=== PATIENT | female | born 1995 | race Caucasian/White ===

== ENCOUNTER 2017-12-03 03:14 | Emergency (ER) | payer BC ==
[~2017-12-03] VITALS: Ht 170.2 cm; Wt 99.5 kg
[2017-12-03] MEDS ORDERED: TETANUS/DIPHTHERIA TOX ADULT 0.5 ML SYR IM ONE (04:00)
== END 2017-12-03 04:00 | disposition home or self-care (01) ==
LOC: FSED 03:14
DX: S61.412A Laceration without foreign body of left hand, initial encounter (principal); M79.642 Pain in left hand; W45.8XXA Other foreign body or object entering through skin, initial encounter; Y92.008 Other place in unspecified non-institutional (private) residence as the place of occurrence of the external cause
CPT/HCPCS: 90714; 99283

== ENCOUNTER 2019-02-04 14:06 | Emergency (ER) | payer SELFPAY ==
[~2019-02-04] VITALS: Ht 170.2 cm; Wt 99.3 kg
--- NOTE | 2019-02-04 14:38 | NUR ---
seen in hallway by level glass vial filler
--- NOTE | 2019-02-04 15:21 | Diagnostic Imaging Report ---
EXAMINATION: PA and lateral views of the chest. COMPARISON: None CLINICAL HISTORY: Chest pain, dizziness DISCUSSION: Lines/tubes: None. Lungs: The lungs are well inflated and clear. There is no evidence of pneumonia or pulmonary edema. Pleura: There is no pleural effusion or pneumothorax. Heart and mediastinum: The cardiomediastinal silhouette is normal. Bones and soft tissues: No acute bony abnormalities. IMPRESSION: No acute cardiopulmonary abnormalities. Signed by: Dr. Ronal Slade M.D. on 02/04/2019 3:18 PM
== END 2019-02-04 19:27 | disposition home or self-care (01) ==
LOC: ER 14:06
DX: R07.89 Other chest pain (principal); R05 Cough; J20.9 Acute bronchitis, unspecified
CPT/HCPCS: 71046; 93005; 99282

== ENCOUNTER 2019-06-21 17:35 | Emergency (ER) | payer BC, MEDICARE ==
[~2019-06-21] VITALS: Ht 170.2 cm; Wt 99.3 kg
--- OUTSIDE RECORDS SUMMARY | 2019-06-21 17:38 | XMS REPORT ---
Author [facility] Address Unknown Phone Unavailable Care Team Providers Care C Developer Name Role Phone Ansley FRAIRE Unavailable Unavailable Problems This patient has no known problems. Allergies, Adverse Reactions, Alerts This patient has no known allergies or adverse reactions. Medications This patient has no known medications. Results Test Description Test Time Test Comments Text Results Atomic Results Result Comments CHEST 2 VIEWS 2019-02-04 15:17:00 [place] [address] Patient Name: DONNA INIGUEZ MR #: [id number] : 1995 Age/Sex: 23/F Req #: [id number] Adm Physician: Ordered by: CRISPIN CASTILLO PLANNER/SCHEDULER Report #: [id number] Location: ER Room/Bed: Procedure: [id number] DX/CHEST 2 VIEWS Exam Date: 02/04/19 Exam Time: 1450 REPORT STATUS: Signed EXAMINATION: PA and lateral views of the chest. C OMPARISON: None CLINICAL HISTORY: Chest pain, dizziness DISCUSSION: Lines/tubes: None. Lungs: The lungs are well inflated and clear. There is no evidence of pneumonia or pulmonary edema. Pleura: There is no pleural effusion or pneumothorax. Heart and mediastinum: The cardiomediastinal silhouette is normal. Bones and soft tissues: No acute bony abnormalities. IMPRESSION: No acute cardiopulmonary abnormalities. Signed by: Dr. Norah Espinoza M.D. on 02/04/2019 3:18 PM Dictated By: NORAH ESPINOZA MD [id number] Transcribed By: JOSE on 02/04/19 1518 COPY TO: CRISPIN CASTILLO NP
[2019-06-21] MEDS ORDERED: HYDROCODONE/APAP 5MG-325MG TAB PO ONE (18:15)
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
== END 2019-06-21 19:50 | disposition home or self-care (01) ==
LOC: ER 17:35
DX: S00.83XA Contusion of other part of head, initial encounter (principal); M54.2 Cervicalgia; S16.1XXA Strain of muscle, fascia and tendon at neck level, initial encounter; S29.012A Strain of muscle and tendon of back wall of thorax, initial encounter; S39.012A Strain of muscle, fascia and tendon of lower back, initial encounter; Z33.1 Pregnant state, incidental; V43.52XA Car driver injured in collision with other type car in traffic accident, initial encounter; Y92.488 Other paved roadways as the place of occurrence of the external cause
CPT/HCPCS: 36415; 70450; 72125; 81025; 84702; 99283